=== PATIENT | male | born 1995 | race African-American/Black ===

== ENCOUNTER 2017-12-24 03:00 | Emergency (ER) | payer SELFPAY ==
[2017-12-24] MEDS: LORazepam 0.5 MG Tab PO ONE (03:51)
--- NOTE | 2017-12-24 04:51 | EDM.PDOC ---
ED HPI GENERAL MEDICAL PROBLEM - General Chief Complaint: General Stated Complaint: shaky, chest pain Time Seen by Provider: 12/24/17 03:25 Source of Information: Reports: Patient History Limitations: Reports: No Limitations - History of Present Illness INITIAL COMMENTS - FREE TEXT/NARRATIVE: Patient states he was sleeping and his girlfriend woke him after he started shaking. He has costochondric chest pain that worsens with movement and palpation. No history of coronary disease, family does have history of CVA. No history of seizure disorder. He does not smoke, occasional drinking and marijuana use. He denies SOB, headache, blood in urine or stool. No urinary symptoms of frequency, urgency, retention, or back pain. Onset: Today, Sudden Duration: Intermittent Location: Reports: Chest Chest Pain Score (Numeric/FACES): 8 - Related Data Allergies Allergy/AdvReac Type Severity Reaction Status Date / Time No Known Allergies Allergy Verified 06/24/15 22:32 Home Meds: Home Meds . [No Known Home Meds] 06/24/15 [History] Past Medical History - Past Health History Medical/Surgical History: Denies Medical/Surgical History Social & Family History - Tobacco Use Smoking Status *Q: Current Every Day Smoker Years of Tobacco use: 1 Packs/Tins Daily: 0.5 ED ROS GENERAL - Review of Systems Review Of Systems: See Below (no notes of fever, chills, or recent illness) Constitutional: Reports: No Symptoms HEENT: Reports: No Symptoms Respiratory: Reports: No Symptoms Cardiovascular: Reports: Chest Pain Endocrine: Reports: No Symptoms GI/Abdominal: Reports: No Symptoms : Reports: No Symptoms Musculoskeletal: Reports: No Symptoms Skin: Reports: No Symptoms Neurological: Reports: Tremors Psychiatric: Reports: No Symptoms Hematologic/Lymphatic: Reports: No Symptoms Immunologic: Reports: No Symptoms ED EXAM, GENERAL - Physical Exam Exam: See Below Exam Limited By: No Limitations General Appearance: Alert, WD/WN, No Apparent Distress Eye Exam: Bilateral Eye: EOMI, Normal Inspection, PERRL Ears: Normal TMs Throat/Mouth: Normal Inspection, Normal Lips, Normal Teeth, Normal Gums, Normal Oropharynx, Normal Voice, No Airway Compromise Head: Atraumatic, Normocephalic Neck: Normal Inspection, Supple, Non-Tender, Full Range of Motion Respiratory/Chest: No Respiratory Distress, Lungs Clear, Normal Breath Sounds, No Accessory Muscle Use, Other (chest palpation causes discomfort to left sternal area) Cardiovascular: Normal Peripheral Pulses, Regular Rate, Rhythm, No Edema, No Gallop, No JVD, No Murmur, No Rub Peripheral Pulses: 2+: Posterior Tibial (L), Posterior Tibial (R), Dorsalis Pedis (L), Dorsalis Pedis (R) GI/Abdominal: Normal Bowel Sounds, Soft, Non-Tender, No Organomegaly, No Distention, No Abnormal Bruit, No Mass Back Exam: Normal Inspection, Full Range of Motion, NT Extremities: Normal Inspection, Normal Range of Motion, Non-Tender, Normal Capillary Refill, No Pedal Edema Neurological: Alert, Oriented, CN II-XII Intact, Normal Cognition, Normal Gait, Normal Reflexes, No Motor/Sensory Deficits, Other (tremors are noted on inspection.) Psychiatric: Normal Affect, Normal Mood Skin Exam: Warm, Dry, Intact, Normal Color, No Rash Lymphatic: No Adenopathy Course - Vital Signs Last Recorded V/S: Last Vital Signs Temp 37.0 C 12/24/17 03:01 Pulse 97 12/24/17 03:01 Resp 18 12/24/17 04:21 BP 125/84 12/24/17 04:21 Pulse Ox 100 12/24/17 03:01 - Orders/Labs/Meds Orders: Active Orders 24 hr Category Date Time Status EKG 12 Lead [EKG Documentation Completion] [RC] STAT Care 12/24/17 03:05 Active DRUG SCREEN, URINE [URCHEM] Stat Lab 12/24/17 04:17 Ordered MISC TEST Stat Lab 12/24/17 04:17 Received UA W/MICROSCOPIC [URIN] Stat Lab 12/24/17 04:17 Ordered Labs: Laboratory Tests 12/24/17 12/24/17 12/24/17 Range/Units 03:45 03:45 04:17 Lactic Acid 0.4 (0.4-2.0) mmol/L Troponin I < 0.017 (<=0.056) ng/mL TSH, Ultra Sensitive 1.408 (0.516-4.13) uIU/mL Urine Color Yellow (YELLOW) Urine Appearance Slightly cloudy H (CLEAR) Urine pH 7.0 (5.0-8.0) Ur Specific [place] 1.025 Urine Protein 30 H (NEGATIVE) mg/dL Urine Glucose (UA) Negative (NEGATIVE) mg/dL Urine Ketones Trace H (NEGATIVE) mg/dL Urine Occult Blood Trace-intact H (NEGATIVE) Urine Nitrite Negative (NEGATIVE) Urine Bilirubin Small H (NEGATIVE) Urine Urobilinogen 0.2 (0.2) EU/dL Ur Leukocyte Esterase Negative (NEGATIVE) Urine RBC 0-5 (NOT SEEN) /HPF Urine WBC 0-5 (NOT SEEN) /HPF Ur Squamous Epith Cells Not seen (NEGATIVE) /HPF Urine Bacteria Few H (NEGATIVE) /HPF Urine Mucus Moderate H (NEGATIVE) /LPF Urine Opiates Screen (NEAGTIVE) Ur Buprenorphine Scrn (NEGATIVE) Ur Oxycodone Screen (NEGATIVE) Urine Methadone Screen (NEGATIVE) Ur Barbiturates Screen (NEGATIVE) Ur Tricyclics Screen (NEGATIVE) Ur Amphetamine Screen (NEGATIVE) U Methamphetamines Scrn (NEGATIVE) Urine MDMA Screen (NEGATIVE) U Benzodiazepines Scrn (NEGATIVE) U Cocaine Metab Screen (NEGATIVE) U Marijuana (THC) Screen (NEGATIVE) Ethyl Alcohol < 3 (0-3) mg/dL 12/24/17 Range/Units 04:17 Lactic Acid (0.4-2.0) mmol/L Troponin I (<=0.056) ng/mL TSH, Ultra Sensitive (0.516-4.13) uIU/mL Urine Color (YELLOW) Urine Appearance (CLEAR) Urine pH (5.0-8.0) Ur Specific [place] Urine Protein (NEGATIVE) mg/dL Urine Glucose (UA) (NEGATIVE) mg/dL Urine Ketones (NEGATIVE) mg/dL Urine Occult Blood (NEGATIVE) Urine Nitrite (NEGATIVE) Urine Bilirubin (NEGATIVE) Urine Urobilinogen (0.2) EU/dL Ur Leukocyte Esterase (NEGATIVE) Urine RBC (NOT SEEN) /HPF Urine WBC (NOT SEEN) /HPF Ur Squamous Epith Cells (NEGATIVE) /HPF Urine Bacteria (NEGATIVE) /HPF Urine Mucus (NEGATIVE) /LPF Urine Opiates Screen Negative (NEAGTIVE) Ur Buprenorphine Scrn Negative (NEGATIVE) Ur Oxycodone Screen Negative (NEGATIVE) Urine Methadone Screen Negative (NEGATIVE) Ur Barbiturates Screen Negative (NEGATIVE) Ur Tricyclics Screen Negative (NEGATIVE) Ur Amphetamine Screen Negative (NEGATIVE) U Methamphetamines Scrn Negative (NEGATIVE) Urine MDMA Screen Negative (NEGATIVE) U Benzodiazepines Scrn Negative (NEGATIVE) U Cocaine Metab Screen Negative (NEGATIVE) U Marijuana (THC) Screen Positive H (NEGATIVE) Ethyl Alcohol (0-3) mg/dL Meds: Medications Discontinued Medications Generic Name Dose Route Start Last Admin Trade Name Kobe PRN Reason Stop Dose Admin Lorazepam 0.5 mg 12/24/17 03:37 12/24/17 03:51 Ativan PO 12/24/17 03:38 0.5 mg ONETIME ONE Administration Departure - Departure Time of Disposition: 04:51 Disposition: Home, Self-Care 01 Condition: Good Clinical Impression: Chest pain Qualifiers: Chest pain type: other chest pain Qualified Code(s): R07.89 - Other chest pain - Discharge Information Instructions: Chest Wall Pain, [id number], Nonspecific Chest Pain Referrals: PCP,Unobtain [Primary Care Provider] - Forms: ED Department Discharge Additional Instructions: Follow up as needed in the clinic next week. Return if chest pain persists. Your labs today were largely negative for any acute causes for your chest pain. Alternate ibuprofen and tylenol as needed for chest pain. If you have any additional questions please don't hesitate to call. - Problem List & Annotations (1) Chest pain SNOMED Code(s): 69432254 Code(s): R07.9 - CHEST PAIN, UNSPECIFIED Status: Acute Priority: Medium Qualifiers: Chest pain type: other chest pain Qualified Code(s): R07.89 - Other chest pain; R07.8 - Other chest pain - Problem List Review Problem List Initiated/Reviewed/Updated: Yes - My Orders Last 24 Hours: My Active Orders 12/24/17 03:05 EKG 12 Lead [EKG Documentation Completion] [RC] STAT 12/24/17 04:17 DRUG SCREEN, URINE [URCHEM] Stat MISC TEST Stat UA W/MICROSCOPIC [URIN] Stat - Assessment/Plan Last 24 Hours: My Active Orders 12/24/17 03:05 EKG 12 Lead [EKG Documentation Completion] [RC] STAT 12/24/17 04:17 DRUG SCREEN, URINE [URCHEM] Stat MISC TEST Stat UA W/MICROSCOPIC [URIN] Stat Assessment:: Chest pain Plan: Follow up as needed in the clinic next week. Return if chest pain persists. Your labs today were largely negative for any acute causes for your chest pain. Alternate ibuprofen and tylenol as needed for chest pain. If you have any additional questions please don't hesitate to call.
== END 2017-12-24 04:55 | disposition home or self-care (01) ==
LOC: VM.ED 03:00
DX: R07.89 Other chest pain (principal); F17.210 Nicotine dependence, cigarettes, uncomplicated
CPT/HCPCS: 36415; 80305; 81001; 83605; 84443; 84484; 99285; A9270; G0480; 80349